=== PATIENT | male | born 1960 | race Caucasian/White ===

== ENCOUNTER → 2017-08-17 | Outpatient (CLI) | payer MEDICAID, OTHER ==
[2017-08-17 10:32] LABS: Cholesterol 202 mg/dL (<200); HDL Cholesterol 34 mg/dL (40-60)
[2017-08-17 11:55] LABS: Triglycerides 706 mg/dL (<150)
== END | disposition home or self-care (01) ==
LOC: LABWHC1 09:07
PROVIDERS: ATTEND Family Medicine
DX: E78.2 Mixed hyperlipidemia (principal)
CPT/HCPCS: 36415; 80061

== ENCOUNTER → 2017-11-14 | Outpatient (CLI) | payer MEDICAID ==
[2017-11-14 09:16] LABS: Cholesterol 252 mg/dL (<200); HDL Cholesterol 28 mg/dL (40-60)
[2017-11-14 09:58] LABS: Triglycerides 2350 mg/dL (<150)
== END | disposition home or self-care (01) ==
LOC: LABWHC1 08:28
PROVIDERS: ATTEND Family Medicine
DX: E78.2 Mixed hyperlipidemia (principal)
CPT/HCPCS: 36415; 80061

== ENCOUNTER → 2017-12-08 | Outpatient (CLI) | payer MEDICAID ==
[2017-12-08 10:57] LABS: Cholesterol 220 mg/dL (<200); HDL Cholesterol 33 mg/dL (40-60)
[2017-12-08 11:20] LABS: Triglycerides 900 mg/dL (<150)
== END | disposition home or self-care (01) ==
LOC: LABWHC1 09:32
PROVIDERS: ATTEND Family Medicine
DX: E78.00 Pure hypercholesterolemia, unspecified (principal); E78.1 Pure hyperglyceridemia
CPT/HCPCS: 36415; 80061

== ENCOUNTER → 2018-01-26 | Outpatient (CLI) | payer MEDICAID ==
[2018-01-26 09:57] LABS: Basophils # (A) 0.1 k/uL (0-0.2); Basophils % (A) 1 %; Eosinophils # (A) 0.2 k/uL (0-0.7); Eosinophils % (A) 3 %; HCT 45.3 % (39.0-53.0); HGB 14.9 gm/dL (13.0-17.5); Lymphocytes # (A) 2.5 k/uL (1.0-4.8); Lymphocytes % (A) 42 %; MCH 27.3 pg (25.0-35.0); MCHC 32.9 g/dL (31.0-37.0); Monocytes # (A) 0.5 k/uL (0-1.0); Monocytes % (A) 8 %; Neutrophils # (A) 2.5 k/uL (1.3-7.7); Neutrophils % (A) 42 %; Platelet Count 277 k/uL (150-450); RBC 5.46 m/uL (4.30-5.90); RDW 13.8 % (11.5-15.5); WBC 5.9 k/uL (3.8-10.6)
[2018-01-26 10:14] LABS: Potassium 4.9 mmol/L (3.5-5.1)
== END | disposition home or self-care (01) ==
LOC: LABPAT 09:06
PROVIDERS: ATTEND Orthopaedic Surgery
DX: Z01.812 Encounter for preprocedural laboratory examination (principal); G56.02 Carpal tunnel syndrome, left upper limb
CPT/HCPCS: 80051; 85025

== ENCOUNTER → 2018-01-26 | Outpatient (CLI) | payer MEDICAID ==
[2018-01-26 18:45] LABS: Cholesterol 209 mg/dL (0-200)
== END ==
LOC: LABWHC1 09:10
PROVIDERS: ATTEND Family Medicine
DX: E78.2 Mixed hyperlipidemia (principal)
CPT/HCPCS: 36415; 80061

== ENCOUNTER 2018-01-31 10:03 | Day surgery (SDC) | payer MEDICAID ==
[2018-01-29 09:47] VITALS: BMI 34.2
--- NOTE | 2018-01-30 14:48 | HP ---
HISTORY AND PHYSICAL DATE OF SURGERY: 01/31/2018 Jae Zhu is a 57-year-old patient seen with progressive symptomatic left carpal tunnel syndrome. We discussed treatment options, he elected to proceed with decompression left median nerve. Consent regarding the procedure was obtained. PAST MEDICAL HISTORY: Hyperlipidemia. PAST SURGICAL HISTORY: Right carpal tunnel release, right knee arthroscopy. DAILY MEDICATIONS: 1. Aspirin. 2. Lipitor. ALLERGIES: PENICILLIN. SOCIAL HISTORY: Patient denies tobacco use. PHYSICAL EVALUATION OF HIS LEFT HAND: He has a positive carpal compression, carpal Tinel's causing numbness and tingling throughout the median nerve distribution. There is significantly decreased sensation throughout the median nerve distribution. There is no tenderness along the A1 viri areas. There is good radial pulse present. Good perfusion distally. RADIOGRAPHS OF THE LEFT HAND: Reveal mild osteoarthritis. IMPRESSION: 1. Left carpal tunnel syndrome. 2. Hyperlipidemia. PLAN: Decompression left median nerve. MMODL / IJN: [id number] /
[~2018-01-31 10:03] MED LIST: DEXAMETHASONE SOD PHOSPHATE 10 MG/ML 1 ML VIAL IV ONE; HYDROmorphone 0.5 MG/0.5 ML SYRINGE IVP PRN; LACTATED RINGERS 1,000 ML IV SCH; LIDOCAINE 1% 20 ML VIAL (10MG/ML) FOR IV START INTRADERMA PRN; MIDAZOLAM 2 MG/2 ML VIAL IV PRN; ONDANSETRON 4 MG/2 ML VIAL IVP ONE; SCOPOLAMINE 1.5MG/72HR PATCH TRANSDERM ONE
[2018-01-31 11:41] VITALS: TEMP 98.3
[2018-01-31] MEDS: ceFAZolin IN SWFI 2 GM/20 ML SYRINGE IVP ONE ×2 (12:25→12:44)
[2018-01-31] MEDS ORDERED: BUPIVACAINE (PF) 0.25% 30 ML VIAL SQ ONE ×3 (12:34→12:53)
[2018-01-31] MEDS ORDERED: LIDOCAINE 1% INJ 10MG/ML (20 ML MDV) ONE (12:35)
[2018-01-31] MEDS ORDERED: MIDAZOLAM 2 MG/2 ML VIAL ONE (12:35)
[2018-01-31] MEDS ORDERED: fentaNYL (PF) 50 MCG/ML 2 ML AMP ONE (12:35)
[2018-01-31] MEDS ORDERED: PROPOFOL 10 MG/ML 20 ML VIAL IV ONE (12:35)
--- NOTE | 2018-01-31 13:12 | P.OP ---
Date of Procedure: 01/31/18 Preoperative Diagnosis: Left carpal tunnel syndrome Postoperative Diagnosis: Same Procedure(s) Performed: Decompression left median nerve Anesthesia: MAC, local Surgeon: Pete Murdock Estimated Blood Loss (ml): 0 Pathology: none sent Condition: stable Disposition: PACU Indications for Procedure: 57-year-old patient seen with symptomatic left carpal tunnel syndrome. After treatment options were discussed, he elected to proceed with decompression left median nerve. Operative Findings: see description of procedure Description of Procedure: Patient was taken to the operative suite. The patient underwent IV sedation by the department of anesthesia. Well-padded tourniquet placed proximal left upper extremity. Left upper extremity prepped and draped in the normal sterile orthopedic fashion. The proposed incision site was infiltrated with 12 mL quarter percent plain Marcaine. When sufficient local analgesia was noted the extremity was elevated and tourniquet insufflated to 250. I made an incision beginning at the distal volar wrist crease extending distally 3 cm in line with the fourth metacarpal sharply through skin. I now dissected through the subcu soft tissues down through the palmar fascia to the transverse carpal ligament. I now made an incision through the transverse carpal ligament. I completed the release proximally and distally with blunt Metzenbaums. I had good complete release of the transverse carpal ligament and good decompression of the nerve. We had good hemostasis. The skin margins were proximal nylon suture. The tourniquet was released with immediate capillary refill all digits noted. I plan sterile dressings followed by loose web roll and Jesus bandage. The patient was awakened, transferred to recovery in stable condition.
[2018-01-31 13:18] VITALS: RESP 18
[2018-01-31] MEDS ORDERED: traMADol 50 MG TAB PO ONE (13:35)
[2018-01-31 14:08] VITALS: BP 137/78; PULSE 77
== END 2018-01-31 14:37 | disposition home or self-care (01) ==
LOC: OR 10:03
PROVIDERS: ATTEND Orthopaedic Surgery
DX: G56.02 Carpal tunnel syndrome, left upper limb (principal); E78.5 Hyperlipidemia, unspecified; Z79.82 Long term (current) use of aspirin; Z79.899 Other long term (current) drug therapy; Z88.0 Allergy status to penicillin
CPT/HCPCS: 64721; J2250; J1100; J2405; J2001; J3010; J2704; J0690

== ENCOUNTER → 2018-04-24 | Outpatient (CLI) | payer MEDICAID ==
[2018-04-24 16:27] LABS: Cholesterol 199 mg/dL (0-200)
== END | disposition home or self-care (01) ==
LOC: LABWHC1 10:30
PROVIDERS: ATTEND Family Medicine
DX: E78.2 Mixed hyperlipidemia (principal)
CPT/HCPCS: 36415; 80061